=== PATIENT | male | born 1970 | race Caucasian/White ===

== ENCOUNTER 2024-06-26 14:41 | Emergency (ER) | payer SELFPAY ==
[2024-06-26] VITALS (11 sets, daily range): BP systolic 102–125; BP diastolic 57–89; PULSE 87–120; RESP 14–35; TEMP 36.7–36.8; O2SAT 94–98; BMI 22.8
--- NOTE | 2024-06-26 15:52 | ED.RN ---
CAREGIVER AT NURSES STATION AGAIN, REASSURED PT THAT HIS VITALS WERE WITHIN NORMAL LIMITS. AGAIN, APOLOGIZED FOR THE WAIT.
--- NOTE | 2024-06-26 16:20 | EKG12_ITS ---
Test Reason : REPEAT Blood Pressure : / mmHG Vent. Rate : 087 BPM Atrial Rate : 087 BPM P-R Int : 162 ms QRS Dur : 080 ms QT Int : 354 ms P-R-T Axes : 080 081 064 degrees QTc Int : 425 ms Normal sinus rhythm Early repolarization Normal ECG Confirmed by GOPI RODRIGUEZ, CALI ([id number]), telegraph editor OLAF BURRELL ([id number]) on 06/27/2024 10:00:31 AM Referred By: Confirmed By:CALI NGUYỄN MD
[2024-06-26] MEDS: Haloperidol Lactate 5 MG/ML Vial 1 MG IV (16:27)
--- NOTE | 2024-06-26 16:31 | ED.RN ---
Addendum entered by Neeta Kovacs 06/26/24 16:35: BARNEY SAMPSON NOT KIRBY Original Note: [facility] [phone]
--- NOTE | 2024-06-26 16:32 | EDS_ITS ---
HPI History of Present Illness Chief Complaint: Chest Pain Informant: patient and family Narrative Narrative: Patient is a 53-year-old [facility] male with history of anxiety for which he takes Seroquel for presenting with chest pain. Patient states he had some mild pressure in his chest around 9 AM and then became worse around 10 or 10:30 AM. States it is in the center of his chest and then moved over to the left-hand side. It does go to his left arm does not radiate down his arm. Denies any associated shortness of breath. Does feel lightheaded and has some nausea. He states he feels like he is going to pass out when he stands up. Does have a history of panic attacks but states this feels different. The chest discomfort has worsened and been constant since 1030 this morning which is what brought him to the emergency room. Patient denies any recent medication changes. Patient denies any known cardiac history. Denies any swelling of his legs. Denies any history of DVT or PE. When I initially evaluated the patient I came into the room and he was stating that he started to feel numb in his mouth and in his hands and his legs and hands were starting a cramp up. Patient started to get more anxious. Patient was placed on a nonrebreather and we worked on slow her breathing and the symptoms did resolve. Expect he was starting to hyperventilate and have carpopedal spasm. [facility] Medical History Anxiety Home Medications ?Medication ?Instructions ?Recorded ?Last Taken ?Type quetiapine 100 mg tablet (Seroquel) 100 mg PO QHS 06/26/24 Unknown History quetiapine 150 mg tablet,extended 150 mg PO QHS 06/26/24 Unknown History release 24 hr (Seroquel XR) Allergy/AdvReac Type Severity Reaction Status Date / Time No Known Allergies Allergy Verified 06/26/24 14:42 Social History Smoking Status: Never smoker ROS ROS ED Constitutional Constitutional ED: Denies chills, fever(s) or sweats Cardiovascular Cardiovascular: Reports as per HPI and chest pain; Denies palpitations Respiratory/Chest Respiratory/Chest: Denies cough or dyspnea Gastrointestinal Gastrointestinal: Reports nausea; Denies abdominal pain or vomiting Musculoskeletal Musculoskeletal: Denies arthralgias or myalgias Integumentary Denies rash Neurologic Neurologic: Reports paresthesias; Denies weakness Psychiatric Psychiatric: Reports anxiety Hematologic/Lymphatic Hematologic/Lymphatic: Denies easy bleeding or easy bruising EXAM Physical Exam Const Vital Signs: 06/26/24 14:42 06/26/24 15:41 06/26/24 15:47 Temperature 98.1 F Temperature Source Oral Pulse Rate 113 H 87 Pulse Rate [Lying] Pulse Rate [Sitting (for 1 minute prior to obtaining)] Pulse Rate [Standing (for 1 minute prior to obtaining)] Respiratory Rate 16 20 H Blood Pressure 116/79 120/78 Blood Pressure [Lying] Blood Pressure [Sitting (for 1 minute prior to obtaining)] Blood Pressure [Standing (for 1 minute prior to obtaining)] Blood Pressure Mean 91 92 Blood Pressure Mean [Lying] Blood Pressure Mean [Sitting (for 1 minute prior to obtaining)] Blood Pressure Mean [Standing (for 1 minute prior to obtaining)] Pulse Ox 94 Oxygen Delivery Method Room Air Room Air Room Air 06/26/24 16:00 06/26/24 16:36 06/26/24 17:00 Temperature Temperature Source Pulse Rate 95 94 Pulse Rate [Lying] Pulse Rate [Sitting (for 1 minute prior to obtaining)] Pulse Rate [Standing (for 1 minute prior to obtaining)] Respiratory Rate 35 H 14 Blood Pressure 116/71 113/72 Blood Pressure [Lying] Blood Pressure [Sitting (for 1 minute prior to obtaining)] Blood Pressure [Standing (for 1 minute prior to obtaining)] Blood Pressure Mean 86 85 Blood Pressure Mean [Lying] Blood Pressure Mean [Sitting (for 1 minute prior to obtaining)] Blood Pressure Mean [Standing (for 1 minute prior to obtaining)] Pulse Ox 94 98 Oxygen Delivery Method Room Air Room Air Room Air 06/26/24 17:37 06/26/24 18:00 06/26/24 19:00 Temperature Temperature Source Pulse Rate 100 92 Pulse Rate [Lying] 99 Pulse Rate [Sitting (for 1 minute prior to obtaining)] 96 Pulse Rate [Standing (for 1 minute prior to obtaining)] 120 H Respiratory Rate 15 14 Blood Pressure 107/75 115/77 Blood Pressure [Lying] 115/74 Blood Pressure [Sitting (for 1 minute prior to obtaining)] 114/57 L Blood Pressure [Standing (for 1 minute prior to obtaining)] 125/80 H Blood Pressure Mean 85 89 Blood Pressure Mean [Lying] 87 Blood Pressure Mean [Sitting (for 1 minute prior to obtaining)] 76 Blood Pressure Mean [Standing (for 1 minute prior to obtaining)] 95 Pulse Ox 96 95 Oxygen Delivery Method Room Air Room Air 06/26/24 20:00 06/26/24 21:00 06/26/24 21:02 Temperature 98.2 F Temperature Source Pulse Rate 96 98 98 Pulse Rate [Lying] Pulse Rate [Sitting (for 1 minute prior to obtaining)] Pulse Rate [Standing (for 1 minute prior to obtaining)] Respiratory Rate 20 H 16 16 Blood Pressure 115/80 108/89 H 102/89 H Blood Pressure [Lying] Blood Pressure [Sitting (for 1 minute prior to obtaining)] Blood Pressure [Standing (for 1 minute prior to obtaining)] Blood Pressure Mean 91 95 93 Blood Pressure Mean [Lying] Blood Pressure Mean [Sitting (for 1 minute prior to obtaining)] Blood Pressure Mean [Standing (for 1 minute prior to obtaining)] Pulse Ox 96 97 97 Oxygen Delivery Method Room Air Room Air Positive well nourished and well developed General Appearance ED: well developed and NAD HEENT Reports moist mucous membranes Eyes PERRL Neck supple and no JVD Chest Wall inspection of chest normal and palpation of chest normal Resp normal respiratory effort and clear to auscultation bilaterally Resp Narrative: Mildly tachypneic on my exam Cardio regular rate, regular rhythm and no murmurs Peripheral Pulses: pulses 2+ throughout GI normal to inspection, nondistended, normoactive bowel sounds, soft to palpation and non-tender Extremity normal to inspection General Extremety ED: Negative for edema General Extremity: Negative for edema Neuro oriented x3 Sensorium / Orientation: awake and alert Motor Exam: general weakness Psych Mood & Affect: anxious Skin no rashes or lesions noted and no wounds Heart Score History: Moderately Suspicious ECG: Nonspecific Repolarization Age: >45 - <65 years Risk Factors: No Risk Factors Score: 3 MDM MDM MDM Narrative Medical decision making narrative: Patient evaluated chest pain that started around 9 AM this morning has been constant since 1030 this morning. Describes as a pressure that radiates to the left side of his chest. Denies any ripping or tearing sensation. Lower suspicion for acute aortic dissection specially as he has normal blood pressure. Patient does appear to have a component of anxiety with this and is hyperventilating and having carpopedal spasm when I first evaluated him. Will be given a dose of Haldol as family is asking for something for anxiety . Patient is amenable to this. Will obtain cardiac workup including a D-dimer for his chest pain. EKG reviewed shows sinus tachycardia with some ST segment changes likely secondary to early repolarization. When compared to prior EKG on 09/29/2021 these only repolarization findings are new. Repeat EKG is ordered to make sure there is no dynamic changes. Repeat EKG is stable and shows normal sinus open rate of 87 bpm with early repolarization changes. Patient is given dose of Haldol for his anxiety and is feeling better. Orthostatics are positive when he stands with his heart rate. Will give IV fluids. From a cardiac standpoint feel that he can follow-up outpatient. Patient is amenable to this. He does have a mild leukocytosis however of not sure of the causes. Does not appear to be any acute infectious etiology at this time, specifically pneumonia. Patient is low risk per [place] and his D-dimer is normal at 0.42. Do not think he requires a CTA of the chest. Patient is also given Tylenol in the emergency room. Will be discharged home to follow-up outpatient with his primary care doctor. Is agreeable with plan of care. Is given return precautions. Discharged home in stable condition. Discharge order was placed for the patient started complaining of pain. Is then given a GI cocktail. Will be discharged home and given close return precautions. Lab Data Attestation: I reviewed the patient's lab results. Labs: Laboratory Results - last 24 hr 06/26/24 06/26/24 16:20 19:00 WBC 13.9 H RBC 5.10 Hgb 15.6 Hct 46.5 MCV 91.2 MCH 30.6 MCHC 33.5 RDW Std Deviation 42.3 RDW Coeff of Charity 12.6 Plt Count 282 MPV 9.2 Immature Gran % (Auto) 0.400 Neut % (Auto) 83.3 H Lymph % (Auto) 8.6 L [place] % (Auto) 6.8 Eos % (Auto) 0.6 Baso % (Auto) 0.3 Absolute Neuts (auto) 11.6 H Absolute Lymphs (auto) 1.19 Nucleated RBC % 0 D-Dimer Quant (PE/DVT) 0.42 Sodium 137 Potassium 3.9 Chloride 106 Carbon Dioxide 27.0 Anion Gap 4 L BUN 15 Creatinine 0.91 Estim Creat Clear Calc 99.52 Est GFR (MDRD) Af Amer 112 Est GFR (MDRD) Non-Af 92 BUN/Creatinine Ratio 16.4 Glucose 98 Calcium 9.1 Magnesium 2.2 Troponin I High Sens 7 11 Radiography Chest X-Ray - ED: 2 View, Read by ED Physician, Read by Radiologist and No Acute Disease Diagnostic Testing: Clinical Impression(s) from Imaging Studies Chest X-Ray 06/26/24 16:45 IMPRESSION: No radiographic evidence of acute cardiopulmonary disease. Electronically Signed: Rogerio Padron MD at 18:49 EDT , Rhythm Strip Rhythm Strip: Sinus Rhythm Discharge Plan Triage Chief Complaint: Chest Pain ED Provider: Shanell Marshall Dx/Rx/DC Orders Clinical Impression: Chest pain, Orthostatic dizziness Instructions: ED Chest Pain, Uncertain Cause Prescriptions: No Action quetiapine [Seroquel] 100 mg tablet 100 mg PO QHS quetiapine [Seroquel XR] 150 mg tablet extended release 24 hr 150 mg PO QHS Primary Care Provider: Care Physician,No Primary Referrals: Jose Bojorquez, [Non-Staff] - As soon as possible Care Physician,No Primary [Primary Care Provider] - Activity Restrictions/Additional Instructions: The cause of your chest pain is not clear. Do not seem to have an acute heart attack, pneumonia, collapsed lungs or blood clot in the lung (pulmonary emboli). Please follow with your primary care doctor. Take Tylenol as needed for pain. Return if you have progression or worsening your symptoms. Print Language: Belarusian Disposition Disposition: Home, Self Care Discharge Date/Time: 06/26/24 21:25
[2024-06-26 16:36] LABS: Absolute Lymphocyte Count 1.19 X10^3/uL (0.83-4.51); Absolute Neutrophil Count 11.6 X10^3/uL (2.0-7.7); Basophil# 0.04 X10^3/uL; Basophil% 0.3 % (0-1); Eosinophil# 0.08 X10^3/uL; Eosinophils% 0.6 % (0-5); Hematocrit 46.5 % (40-54); Hemoglobin 15.6 g/dL (13.0-16.5); Lymphocyte # 1.19 X10^3/ul (0.83-4.51); Lymphocyte % 8.6 % (19-41); Mean Corp Hgb Conc 33.5 g/dL (32-36); Mean Corpuscular Hgb 30.6 pg (27.0-32.0); Mean Corpuscular Volume 91.2 fL (80-94); Mean Platelet Vol. 9.2 fl (6.2-12.0); Monocyte# 0.95 X10^3/uL; Monocyte% 6.8 % (0-10); NRBC Flagged by Analyzer 0 % (0-5); Neutrophil # 11.55 X10^3/uL (2.7-7.7); Neutrophil % 83.3 % (47-70); Platelet Count 282 K/mm3 (150-450); RBC Distribution Width CV 12.6 % (11.6-14.6); RBC Distribution Width SD 42.3 fl (35.1-43.9); White Blood Count 13.9 K/mm3 (4.4-11.0)
--- NOTE | 2024-06-26 16:36 | EKG12_ITS ---
Test Reason : CP Blood Pressure : / mmHG Vent. Rate : 103 BPM Atrial Rate : 103 BPM P-R Int : 144 ms QRS Dur : 076 ms QT Int : 330 ms P-R-T Axes : 071 078 066 degrees QTc Int : [address] elevation, consider early repolarization Borderline ECG Confirmed by GOPI RODRIGUEZ, CALI ([id number]), international editorial producer OLAF BURRELL ([id number]) on 06/27/2024 10:01:02 AM Referred By: Confirmed By:CALI NGUYỄN MD
--- NOTE | 2024-06-26 16:45 | RAD_ITS ---
EXAM: XR CHEST, 2 VIEWS CLINICAL INDICATION: chest pain TECHNIQUE: Frontal and lateral views of the chest. COMPARISON: No relevant prior studies available. FINDINGS: LUNGS AND PLEURAL SPACES: Unremarkable. No consolidation or edema. No pneumothorax. No effusion. HEART: Unremarkable. Cardiac silhouette not enlarged. MEDIASTINUM: Central airways and mediastinal contour are unremarkable. BONES/JOINTS: Unremarkable. No acute fracture. SOFT TISSUES: Unremarkable. RAD/Chest PA and Lateral IMPRESSION: No radiographic evidence of acute cardiopulmonary disease. Electronically Signed: Rogerio Padron MD at 18:49 EDT ,
[2024-06-26 16:46] LABS: D-Dimer Quantitative (DVT/PE) 0.42 FEU/ug/m (0.27-0.49)
[2024-06-26 16:55] LABS: Anion Gap 4 (5-15); BUN 15 mg/dL (7-18); BUN/Creat Ratio 16.4 RATIO (10-20); Calcium,Total 9.1 mg/dL (8.5-10.1); Chloride 106 mmol/L (98-107); Creatinine, Serum 0.91 mg/dL (0.70-1.30); EST Glomerular Filtration Rate 92 mL/min (>60); Est Glom Filt Rate - Afr Amer 112 mL/min (>60); Estimated Creatinine Clearance 99.52 ml/min; Glucose 98 mg/dL (74-106); Magnesium 2.2 mg/dL (1.6-2.6); Potassium 3.9 mmol/L (3.5-5.1); Sodium Level 137 mmol/L (136-145); Troponin-I HS (w/2H Reflex) 7 pg/mL (3.0-78.0)
[2024-06-26 18:26] LABS: Reflex Troponin-HS? (from REC) Y
[2024-06-26 19:32] LABS: Troponin-I HS 11 pg/mL (3.0-78.0)
[2024-06-26] MEDS: Acetaminophen 500 MG Tablet PO (20:05)
[2024-06-26] MEDS: 0.9% Normal Saline (500mL Bag) 500 ML 999 ML IV (20:05)
[2024-06-26] MEDS: Lidocaine 2% Viscous15 ML UDC 15 ML PO (21:16)
[2024-06-26] MEDS: Mag Hydrox/Al Hydrox/Simeth 30 ML UDC PO (21:16)
== END 2024-06-26 21:25 | disposition home or self-care (01) ==
PROVIDERS: Emergency Provider Emergency Medicine; Visit Provider Emergency Medicine
DX: R07.9 Chest pain, unspecified (principal); R42 Dizziness and giddiness; F41.9 Anxiety disorder, unspecified; Z79.899 Other long term (current) drug therapy
CPT/HCPCS: 71046; 80048; 83735; 84484; 85025; 85379; 93005; 96361; 96374; 99285; J7040; A4216